=== PATIENT | male | born 1960 | race Caucasian/White ===

== ENCOUNTER → 2020-04-27 02:13 | Outpatient (CLI) | payer OTHER, SELFPAY ==
[2020-04-27 19:27] LABS: SARS-CoV-2 RNA PCR Negative
== END ==
PROVIDERS: PCP Family Medicine; Visit Provider Otolaryngology
DX: Z01.812 Encounter for preprocedural laboratory examination (principal); Z20.822 Contact with and (suspected) exposure to COVID-19
CPT/HCPCS: C9803; U0003; U0005

== ENCOUNTER 2020-04-30 01:51 | Day surgery (SDC) | payer OTHER, SELFPAY ==
[2020-04-27 11:08] VITALS: BMI 36.9
[2020-04-30] VITALS (9 sets, daily range): BP systolic 140–176; BP diastolic 57–81; PULSE 61–75; RESP 10–20; TEMP 36.1–36.3; O2SAT 97–100; BMI 38.5
--- NOTE | 2020-04-30 06:05 | ECG_ITS ---
Measurements Intervals [place] Rate: 66 P: 49 OR: 146 QRS: 24 QRSD: 105 T: 26 QT: 410 QTc: 430 Interpretive Statements SINUS RHYTHM INCOMPLETE RIGHT BUNDLE BRANCH BLOCK BASELINE ARTIFACT- V6 BORDERLINE ECG Electronically Signed On 04-30-2020 7:57:57 CDT by River Telles D.O.
[2020-04-30] MEDS: LACTATED RINGERS 1,000 ML 30 ML IV CONT ×2 (07:01→10:40)
[2020-04-30] MEDS: OXYMETAZOLINE HCL 0.05% NAS 15 ML BTL (*BKC) 1 SPRAY NASAL (07:02)
[2020-04-30] MEDS: ACETAMINOPHEN 500 MG TABLET 1000 MG PO (07:03)
--- NOTE | 2020-04-30 07:19 | WPDANESEPPF ---
Anes - Initial Pre Proc Eval Procedure: Operation Date: 04/30/20 08:00 Proposed Procedures p Image Guided Turbinate Reduction, Frontal Total Ethmoidectomy, Sphenoidotomy, Bilateral Maxillary Antrostomy with Tissue Removal, - Nathen Roy MD s Septoplasty - Nathen Roy MD Date/Time: 04/30/20 07:19 Surgeon: Nathen Roy MD Pre Op Diagnosis: office will call back when available Patient Data Age: 59 Gender: M Height: 6 ft 4 in Weight: 143.8 kg Last Vital Signs Temp 36.3 C L 04/30/20 07:12 Pulse 74 04/30/20 07:12 Resp 20 04/30/20 07:12 BP 176/70 H 04/30/20 07:12 Pulse Ox 97 04/30/20 07:12 Allergies Allergy/AdvReac Type Severity Reaction Status Date / Time Penicillins Allergy Severe Hives Verified 04/30/20 06:14 Home Medications Medication Instructions Recorded Confirmed Type amlodipine 10 mg PO DAILY 04/27/20 04/30/20 History aspirin 325 mg PO DAILY 04/27/20 04/30/20 History atorvastatin 20 mg PO DAILY 04/27/20 04/30/20 History insulin glargine [Lantus Solostar 74 unit SUBCUT HS 04/27/20 04/30/20 History U-100 Insulin] insulin lispro [Humalog U-100 38 unit SUBCUT TIDWM 04/27/20 04/30/20 History Insulin] omeprazole 40 mg PO DAILY 04/27/20 04/30/20 History valsartan-hydrochlorothiazide 1 tablet PO DAILY 04/27/20 04/30/20 History Laboratory Tests 04/30/20 07:06 Sodium Pending Potassium Pending Chloride Pending Carbon Dioxide Pending Anion Gap Pending BUN Pending Creatinine Pending Estim Creat Clear Calc Pending Estimated GFR Pending Glucose Pending Calcium Pending Patient hx anesthesia problems: none Family hx anesthesia problems: none PMFSH Past Medical History Medical History (Updated 04/30/20 @ 07:20 by Rory Mota MD) Diabetes HTN (hypertension) Hyperlipidemia Obesity TINO (obstructive sleep apnea) Surgical History Surgical History (Updated 04/30/20 @ 07:20 by Rory Mota MD) H/O umbilical hernia repair Hx of tonsillectomy Social History Social History Smoking status: Never smoker Alcohol intake: current Alcohol use details: 1 BEER/MONTH Substance use: never Substance use type: does not use Living arrangements: with family Spiritual care concerns: No Anes - Eval Final PreProcedure Day of Procedure 04/30/20 07:19 Patient weight: obese Heart: regular rate and rhythm Lungs: clear to auscultation Airway: Mallampati scale class II Neurological: alert and oriented Last oral intake: >/= 8 hours ASA classification: III Emergent: no Anesthetic plan: proceed Anesthesia type and monitoring: general ETT and standard monitoring Informed Consent: The patient's anesthetic plan and its attendant risks and benefits were discussed with the patient/family/POA. Questions were solicited and answers provided to the satisfaction of the patient/family/POA.
[2020-04-30 07:28] LABS: Anion Gap 3 mmol/L (8-16); Blood Urea Nitrogen 20 mg/dL (9-20); Calcium 9.3 mg/dL (8.4-10.2); Carbon Dioxide 32 mmol/L (22-30); Chloride 104 mmol/L (98-107); Estimated CRCL calculation 148 ml/min; Estimated Glomerular Filt Rate > 60; Glucose 76 mg/dL (75-110); Potassium 3.7 mmol/L (3.4-5.0); Sodium 139 mmol/L (137-145)
--- NOTE | 2020-04-30 07:57 | WPDHPUPDATE1 ---
History and Physical Update Update Date/Time: 04/30/20 07:57 History and Physical has been reviewed, including an updated exam of the patient. There are NO changes in the patient's condition. Risks, benefits, and alternatives have been discussed and questions answered. Patient agrees to proceed with procedure.
[2020-04-30] MEDS: CLINDAMYCIN 900 MG/D5W 50 ML 900 MG/50 ML PIGGYBACK 50 MG IVPB (08:21)
[2020-04-30] MEDS: LIDO 1%/EPINEPHRINE 1:100,000 50 ML VIAL INFILTRATE (09:25)
[2020-04-30] MEDS: MUPIROCIN 2% OINT 22 GM TUBE 1 APPLIC EACH NARE (10:18)
--- NOTE | 2020-04-30 10:26 | PM.PROC ---
Procedure Note - Detailed Date of procedure: 04/30/20 Pre-op diagnosis: office will call back when available Nasal polyposis, chronic pansinusitis, deviated septum, turbinate hypertrophy Post-op diagnosis: same Procedure performed: Bilateral frontal sinusotomy, total ethmoidectomy, sphenoidotomy with tissue removal, maxillary antrostomy with tissue removal, septoplasty, bilaterla inferior turbinoplasty Description of procedure: On the date of procedure the patient was met in the preoperative area and risk and benefits of the procedure reviewed with the patient as documented in the H&P and they elected to proceed with surgery. Patient was brought back to the operating room by the anesthesia team and underwent general endotracheal anesthesia. Once an adequate plane of anesthesia was obtained a timeout was performed to assure the patient identification the patient here to be performed were correct. They were.The patient was then prepped and draped in the normal fashion for endoscopic sinus surgery. The diffusion image guidance system was calibrated and used for the entire case. Afrin-soaked pledgets were placed in the nasal cavities bilaterally. The entire case was performed under endoscopic visualization. Nasal endoscopy was performed at the beginning of the case. 1% lidocaine with 1:100,000 epinephrine was then injected into the root of the middle turbinate and lateral nasal wall. Attention was first directed towards the right side. Gross polyp disease was completely obstructing the nasal passage and microdebrider used to resect gross polyp disease back to the nasopharynx. The middle turbinate was medialized and the osteomeatal complex was identified with a luana probe. Using a 90 degree backbiter, the uncinate process was reflected anteriorly and removed using a combination of sharp and powered dissection. The maxillary antrostomy was then created and widened by identifying the natural ostia and opening the sinus with straight kristie-cut forceps, backbiter, and microdebrider. Polyp tissue encountered was removed with microdebrider. Continuing with the microdebrider, the anterior ethmoid bulla was opened. Careful dissection was carried out posteriorly, through the basal lamella and posterior ethmoid cells until the sphenoid rostrum was identified. A Padmini suction bluntly identified the sphenoid os and the opening was widened with microdebrider and mushroom punch to 5mm. Using an image guided curved suction as well as J-curette, the posterior most ethmoid cell was identified and the ethmoids were bluntly fractured and dissected from posterior to anterior along the base of the skull. The remaining bone fragments were removed with appropriate curved instruments and microdebrider.? Lastly, image guided frontal suction and sinus seeker were used to identify the frontal sinus and enter it.? The frontal sinus was irrigated with saline which removed polyp tissue.? Lastly once all the sinuses were adequately addressed, the right middle turbinate was resected due to origination of polyp disease along it. The base of the middle turbinate was cauterized with suction cautery to achieve hemostasis. The right side was narrowed due to septal deviation.? Thus, septoplasty was required.? A modified vasquez incision was made in the right caudal septum and a mucoperichondrial flap was elevated in the usual fashion. The flap was elevated under endoscopic visualization and the remainder of the case was performed with endoscopic assistance. Using a D-knife, an incision was made through the cartilaginous septum with care to preserve the appropriate caudal and dorsal ?L-strut? of cartilage. The cartilage was then disarticulated from the bony-cartilaginous junction and the deviated cartilage was removed. Further deviated bone and cartilage was removed from the maxillary crest and posterior bony septum with care to avoid injury to the mucoperichondrial flap using a combination of dissection and Nilam fo
[2020-04-30 10:47] LABS: Glucose Point of Care 115 (65-105)
[2020-04-30] MEDS: ONDANSETRON INJ 4 MG/2 ML VIAL IV PUSH (12:55)
== END 2020-04-30 13:10 | disposition home or self-care (01) ==
PROVIDERS: Anesthesiology; PCP Family Medicine; Visit Provider Otolaryngology
PROC: (CPT 31253; principal; 2020-04-30 08:00)
PROC: (CPT 30520; 2020-04-30 08:00)
DX: J33.9 Nasal polyp, unspecified (principal); J32.4 Chronic pansinusitis; J34.2 Deviated nasal septum; J34.3 Hypertrophy of nasal turbinates; J30.2 Other seasonal allergic rhinitis; Z79.82 Long term (current) use of aspirin; Z79.4 Long term (current) use of insulin; E11.9 Type 2 diabetes mellitus without complications; I10 Essential (primary) hypertension; E78.5 Hyperlipidemia, unspecified; G47.33 Obstructive sleep apnea (adult) (pediatric); E66.9 Obesity, unspecified; Z68.38 Body mass index [BMI] 38.0-38.9, adult
CPT/HCPCS: 31253; 31259; 31267; 30140; 61782; 30520; 36415; 80048; 82948; 93005; A9270; J0330; J1100; J2250; J2370; J2405; J2704; J3010; J7040; J7120

== ENCOUNTER → 2021-05-28 07:27 | Outpatient (CLI) | payer OTHER, SELFPAY ==
[2021-05-28 12:34] LABS: SARS-CoV-2 RNA PCR Negative
== END ==
PROVIDERS: PCP Family Medicine; Visit Provider Family Medicine
DX: R05.3 Chronic cough (principal); Z20.822 Contact with and (suspected) exposure to COVID-19
CPT/HCPCS: C9803; U0003; U0005

== ENCOUNTER → 2021-08-05 02:53 | Outpatient (CLI) | payer OTHER, SELFPAY ==
[2021-08-05 11:18] LABS: SARS-CoV-2 RNA PCR Positive
== END ==
PROVIDERS: PCP Family Medicine; Visit Provider Family Medicine
DX: U07.1 COVID-19 (principal)
CPT/HCPCS: C9803; U0003; U0005